=== PATIENT | male | born 1940 | race Caucasian/White ===

== ENCOUNTER → 2018-04-03 | Outpatient (CLI) | payer OTHER | END | disposition home or self-care (01) | LOC: RAD 07:35 | PROVIDERS: ATTEND Physician Assistant | DX: M51.36 Other intervertebral disc degeneration, lumbar region (principal); M41.86 Other forms of scoliosis, lumbar region; M25.78 Osteophyte, vertebrae; M54.42 Lumbago with sciatica, left side; I10 Essential (primary) hypertension; E78.2 Mixed hyperlipidemia; L40.9 Psoriasis, unspecified; H40.9 Unspecified glaucoma; R01.1 Cardiac murmur, unspecified; R73.01 Impaired fasting glucose | CPT/HCPCS: 72110 ==